=== PATIENT | male | born 1970 | race Caucasian/White ===

== ENCOUNTER 2022-01-27 09:14 | Observation (INO) ==
[~2022-01-27 09:14] MED LIST: *HR* OxyCODONE Immed Rel 5 MG TABLET PO ONE; Acetaminophen IV 1,000 MG/100 ML BAG IVPB ONE; Famotidine 20 MG/2 ML VIAL IVP ONE; Gabapentin 300 MG CAPSULE PO ONE; Polymyxin B Sulfate 500,000 UNIT, Sodium Chloride IRRigation 1,000 ML IR ONE; tiZANidine 4 MG TABLET PO ONE
[2022-01-27] MEDS ORDERED: CeFAZolin Syr 2,000MG/20 ML 2,000 MG/20 ML SYRINGE IVPB ONE (09:22)
[2022-01-27] MEDS ORDERED: *HR* Labetalol 20 MG/4 ML SYRINGE IVP PRN (09:27)
[2022-01-27] MEDS ORDERED: Acetaminophen IV 1,000 MG/100 ML BAG IVPB ONE (09:27)
[2022-01-27] MEDS ORDERED: Famotidine 20 MG/2 ML VIAL IVP ONE (09:27)
[2022-01-27] MEDS ORDERED: *HR* HYDROmorphone 2 MG TABLET PO PRN (09:27)
[2022-01-27] MEDS ORDERED: *HR* OxyCODONE Immed Rel 5 MG TABLET PO PRN (09:27)
[2022-01-27] MEDS ORDERED: Pregabalin 75 MG CAPSULE PO ONE (09:27)
[2022-01-27] MEDS ORDERED: tiZANidine 4 MG TABLET PO ONE (09:28)
[2022-01-27] MEDS ORDERED: Ringers Solution, Lactated 1,000 ML IVC SCH ×2 (09:30→17:55)
[2022-01-27] MEDS ORDERED: *HR* LORazepam 1 MG TABLET PO ONE (09:52)
[2022-01-27] MEDS ORDERED: Lidocaine HCL 4 ML Topical Solution (Laryng-O-Jet Kit Sterile Pak) TP ONE (10:36)
[2022-01-27] MEDS ORDERED: *HR* FentaNYL (PF) 100 MCG/2 ML VIAL ONE (10:36)
[2022-01-27] MEDS ORDERED: Lidocaine -MPF 2% 2 ML VIAL ONE (10:36)
[2022-01-27] MEDS ORDERED: *HR* Rocuronium Bromide 50 MG/5 ML VIAL ONE (10:36)
[2022-01-27] MEDS ORDERED: *HR* Midazolam HCl 2 MG/2 ML VIAL ONE (10:36)
[2022-01-27] MEDS ORDERED: *HR* Succinylcholine 200 MG/10 ML VIAL IVP ONE (10:36)
[2022-01-27] MEDS ORDERED: *HR* Propofol 200 MG/20 ML VIAL IVP ONE (10:36)
[2022-01-27] MEDS ORDERED: Ondansetron 4 MG/2 ML VIAL ONE (10:36)
[2022-01-27] MEDS ORDERED: Vancomycin 1,000 MG VIAL ONE (11:19)
[2022-01-27] MEDS ORDERED: Polymyxin B Sulfate 500,000 UNIT, Sodium Chloride IRRigation 1,000 ML IR ONE (11:40)
[2022-01-27] MEDS ORDERED: *HR* HYDROMORPHONE 2 MG/ML VIAL ONE (15:59)
[2022-01-27] MEDS: *HR* HYDROmorphone (PF) 1 MG/ML SYRINGE IVP PRN ×3 (16:11→16:37)
[2022-01-27] MEDS: *HR* FentaNYL (PF) 100 MCG/2 ML VIAL IVP PRN ×4 (16:51→17:21)
[2022-01-27] MEDS ORDERED: Acetaminophen 325 MG TABLET PO PRN (17:55)
[2022-01-27] MEDS ORDERED: Ondansetron 4 MG/2 ML VIAL IVP PRN (17:55)
[2022-01-27] MEDS ORDERED: Naloxone 0.4 MG/ML INJ IVP PRN (17:55)
[2022-01-27] MEDS ORDERED: *HR* HYDROcodone/Acet 5/325 mg TABLET PO PRN (17:55)
[2022-01-27] MEDS: Gabapentin 400 MG CAPSULE PO SCH ×2 (20:25→20:26)
[2022-01-27] MEDS: *HR* OxyCODONE Immed Rel 5 MG TABLET PO PRN (20:25)
[2022-01-28] MEDS: CeFAZolin 2 GM/120 ML BAG IVPB SCH ×2 (00:11→08:23)
[2022-01-28] MEDS: *HR* OxyCODONE Immed Rel 5 MG TABLET PO PRN ×6 (00:32→23:24)
[2022-01-28] MEDS: Gabapentin 400 MG CAPSULE PO SCH ×4 (08:07→19:56)
[2022-01-28] MEDS: hydroCHLOROthiazide 25 MG TABLET PO SCH (08:07)
[2022-01-29] MEDS: *HR* OxyCODONE Immed Rel 5 MG TABLET PO PRN ×3 (03:15→12:45)
[2022-01-29] MEDS: hydroCHLOROthiazide 25 MG TABLET PO SCH (08:36)
[2022-01-29] MEDS: Gabapentin 400 MG CAPSULE PO SCH ×2 (08:36→12:46)
[2022-01-29 11:21] VITALS: BP 99/69; PULSE 115; TEMP 97.7; O2SAT 96
== END 2022-01-29 16:26 | disposition home or self-care (01) ==
LOC: 4WAOSI 09:14 → SDCAOSI 09:14 → 4WAOSI 17:37
PROVIDERS: ADMIT Orthopaedic Surgery Orthopaedic Surgery of the Spine; ATTEND Orthopaedic Surgery Orthopaedic Surgery of the Spine